=== PATIENT | female | born 1945 ===

== ENCOUNTER 2018-06-01 06:26 | Emergency (ER) | payer SELFPAY ==
[2018-06-01 06:47] VITALS: BP 159/81; PULSE 75; RESP 18; TEMP 98.6; O2SAT 98
--- NOTE | 2018-06-01 07:15 | ED PDOC ---
HPI: Dental Pain/Injury Time Seen by Provider: 06/01/18 07:05 Chief Complaint (Nursing): Dental Pain History Per: Patient Onset/Duration Of Symptoms: Days (3) Current Symptoms Are (Timing): Still Present Severity: Moderate Pain Scale Rating Of: 4 Quality: Aching Additional Complaint(s): Right upper incisor dental pain x 3 days assoc with swelling upper lip. No trauma ot fever Lost tooth 3 months ago . Past Medical History Vital Signs: Last Vital Signs Temp 98.6 F 06/01/18 06:34 Pulse 75 06/01/18 06:34 Resp 18 06/01/18 06:34 BP 159/81 H 06/01/18 06:34 Pulse Ox 98 06/01/18 06:34 - Medical History PMH: Hypercholesterolemia - Family History Family History: States: Unknown Family Hx - Home Medications Home Medications: Ambulatory Orders Medication Instructions Recorded Naproxen [Naprosyn] 500 mg PO Q12H #20 tab 06/01/18 Penicillin VK [Penicillin VK Tab] 500 mg PO Q6 #40 tab 06/01/18 - Allergies Allergies/Adverse Reactions: Allergies Allergy/AdvReac Type Severity Reaction Status Date / Time No Known Allergies Allergy Verified 06/01/18 06:43 Review of Systems Constitutional: Negative for: Fever ENT: Positive for: Mouth Pain, Mouth Swelling Physical Exam - Physical Exam Appears: Positive for: Non-toxic, No Acute Distress Skin: Positive for: Normal Color, Warm, DRY ENT: Positive for: Other (Mild swelling right upper lip. Right front second incisor missing. No swelling of gum. No discharge.) Neck: Positive for: Normal, Painless ROM - ECG O2 Sat by Pulse Oximetry: 98 Disposition - Clinical Impression Clinical Impression: Toothache - Patient ED Disposition Is Patient to be Admitted: No Counseled Patient/Family Regarding: Diagnosis, Need For Followup, Rx Given - Disposition Referrals: Dylan Metz DDS [Staff Provider] - Disposition: Routine/Home Disposition Time: 07:15 Condition: FAIR Prescriptions: Naproxen [Naprosyn] 500 mg PO Q12H #20 tab Penicillin VK [Penicillin VK Tab] 500 mg PO Q6 #40 tab Instructions: Dental Pain Print Language: HUNGARIAN
[2018-06-01] MEDS ORDERED: Naproxen 500 MG TAB PO ONE (07:30)
== END 2018-06-01 07:39 | disposition home or self-care (01) ==
LOC: H.ER 06:26
DX: K08.89 Other specified disorders of teeth and supporting structures (principal); E78.00 Pure hypercholesterolemia, unspecified